=== PATIENT | female | born 2000 | race African-American/Black ===

== ENCOUNTER 2024-04-12 06:23 | Emergency (ER) | payer OTHER, MEDICAID, SELFPAY ==
--- NOTE | ~2024-04-12 | XR_ITS ---
Left ankle Technique: AP, oblique, and lateral views were obtained. Clinical History: Pain Findings: No acute fracture or dislocation is seen. Osseous alignment is anatomic. Ankle mortise and other visualized joint spaces are preserved. Soft tissues are otherwise unremarkable. Impression: Unremarkable left ankle. Reviewed, dictated and finalized at location . Impression: Unremarkable left ankle.
[2024-04-12 06:30] VITALS: BP 106/68; PULSE 82; RESP 15; TEMP 36.7; O2SAT 100
--- NOTE | 2024-04-12 07:00 | ED.LOWEXIN ---
HPI - Extremity Injury (Lower) General Chief Complaint: Extremity Injury, Lower Stated Complaint: L leg injury Time Seen by Provider: 04/12/24 07:00 Source: patient Mode of arrival: ambulatory Limitations: no limitations History of Present Illness HPI Narrative: Patient rolled her left ankle yesterday while running. Denies other injuries Related Data Allergies Allergy/AdvReac Type Severity Reaction Status Date / Time No Known Allergies Allergy Verified 04/12/24 06:35 Review of Systems Review of Systems: All systems reviewed & are unremarkable except as noted in HPI and below Exam Narrative: General appearance: Well-developed, well-nourished Skin: Normal color Head: Normocephalic, nontraumatic Neck: Supple, nontender Chest and respiratory: Airway patent, no respiratory distress, no accessory muscle use Heart: Regular rate/rhythm Vascular: Normal peripheral pulses, normal capillary refill. Musculoskeletal: Diffuse tenderness left ankle, laterally, slightly swelling, no deformity, no bruises, slight limited range of motion because of pain Neurologic: Alert and oriented ?3, ANGLE SHEARER is normal as tested, no gross motor deficit Course Vital Signs Vital signs: Vital Signs Temperature 36.7 C 04/12/24 06:30 Pulse Rate 82 04/12/24 06:30 Respiratory Rate 15 04/12/24 06:30 Blood Pressure 106/68 04/12/24 06:30 Pulse Oximetry 100 04/12/24 06:30 Oxygen Delivery Room Air 04/12/24 06:30 Temperature 36.7 C 04/12/24 06:30 Pulse Rate 82 04/12/24 06:30 Respiratory Rate 15 04/12/24 06:30 Blood Pressure 106/68 04/12/24 06:30 Pulse Oximetry 100 04/12/24 06:30 Oxygen Delivery Room Air 04/12/24 06:30 MDM - Extremity Injury (Lower) Imaging Data Radiologist's impression: Impressions Ankle X-Ray 04/12/24 07:00 Impression: Unremarkable left ankle. Foot X-Ray 04/12/24 07:00 Impression: Unremarkable left foot radiographs. Critical Care Time Critical Care Time Critical Care Time: No Discharge Plan Discharge Clinical Impression: Ankle sprain and strain Patient Disposition: Home, Self-Care Condition: Stable Instructions: Ankle Sprain (DC), Ankle Stirrup Splint (ED) Additional Instructions: Return if symptoms are worsening , call your family physician for appointment, take Tylenol and or ibuprofen as as needed for aches and pain, continue home medications Keep left foot elevated, crutches Follow-up/Referrals: UNKNOWN,DOCTOR [Primary Care Provider] - Stand Alone Forms: Work/School Release IP
[2024-04-12 07:54] VITALS: BP 108/77
== END 2024-04-12 07:59 | disposition home or self-care (01) ==
LOC: ANHED 07:40
PROVIDERS: Emergency Provider Emergency Medicine
DX: S93.402A Sprain of unspecified ligament of left ankle, initial encounter (principal); S96.912A Strain of unspecified muscle and tendon at ankle and foot level, left foot, initial encounter; X50.9XXA Other and unspecified overexertion or strenuous movements or postures, initial encounter; Y93.02 Activity, running
CPT/HCPCS: 73610; 73630; 99283